=== PATIENT | male | born 1980 | race Caucasian/White ===

== ENCOUNTER 2024-04-23 11:38 | Emergency (ER) | payer OTHER ==
[~2024-04-23] VITALS: Ht 172.7 cm; Wt 80.0 kg
[2024-04-23 11:46] VITALS: O2SAT 100
[2024-04-23] MEDS ORDERED: ACET-2708 MT (11:59)
[2024-04-23] MEDS: ACETAMINOPHEN 325MG TABLET PO ONE (12:10)
[2024-04-23 12:33] VITALS: BP 137/74; PULSE 75; RESP 18; TEMP 37.1; O2SAT 100
== END 2024-04-23 12:34 | disposition home or self-care (01) ==
LOC: ER 11:38
DX: S00.03XA Contusion of scalp, initial encounter (principal); Z85.038 Personal history of other malignant neoplasm of large intestine; Y04.0XXA Assault by unarmed brawl or fight, initial encounter; Y93.89 Activity, other specified; Y92.89 Other specified places as the place of occurrence of the external cause; Y99.8 Other external cause status
CPT/HCPCS: 99282